=== PATIENT | female | born 1970 | race Caucasian/White ===

== ENCOUNTER 2022-03-24 12:31 | Emergency (ER) | payer BC ==
[~2022-03-24] VITALS: Ht 157.4 cm; Wt 90.7 kg
[2022-03-24] MEDS ORDERED: DICYCLOMINE HCL10 MG PO (13:53)
[2022-03-24] MEDS ORDERED: CEPHALEXIN500 M1 PO (13:53)
== END 2022-03-24 14:12 | disposition home or self-care (01) ==
LOC: ED 12:31
DX: S93.402A Sprain of unspecified ligament of left ankle, initial encounter (principal); Z98.51 Tubal ligation status; X58.XXXA Exposure to other specified factors, initial encounter; Y93.89 Activity, other specified; Y92.89 Other specified places as the place of occurrence of the external cause; Y99.8 Other external cause status

== ENCOUNTER 2024-02-11 20:27 | Emergency (ER) | payer BC ==
[~2024-02-11] VITALS: Ht 167.6 cm; Wt 86.2 kg
[~2024-02-11 20:27] MED LIST: CEPHALEXIN500 M1 PO; DICYCLOMINE HCL10 MG PO
[2024-02-11 20:53] LABS: BASO # 0.1 10*3/uL (0.0-0.1); BASO % 0.9 % (0.0-1.0); EOS # 0.1 10*3/uL (0.0-0.4); EOS % 1.8 % (1.0-4.0); HEMATOCRIT 43.7 % (37.0-47.0); LYMPH # 2.8 10*3/uL (1.3-4.4); MEAN CELL VOLUME 83.6 fl (81.0-99.0); MEAN CORPUSCULAR HGB 26.4 pg (27.0-31.0); MEAN CORPUSCULAR HGB CONC 31.6 g/dl (33.0-37.0); MEAN PLATELET VOLUME 9.1 fl (9.6-12.3); MONO # 0.7 10*3/uL (0.1-1.0); PLATELET COUNT AUTOMATED 347 10*3/uL (130-400); RED BLOOD COUNT 5.23 10*6/uL (4.10-5.10); RED CELL DISTRI WIDTH 13.7 % (0-14.5); WHITE BLOOD COUNT 7.6 10*3/uL (4.8-10.8)
[2024-02-11] MEDS ORDERED: IOHEXOL 300 MG/ML 100 ML VIAL IV ONE (21:00)
[2024-02-11 21:12] LABS: BUN 17 mg/dl (9-23); CHLORIDE 102 mmol/L (98-107); POTASSIUM 3.9 mmol/L (3.4-5.1)
[2024-02-12] MEDS ORDERED: CLINDAMYCIN HC300 MG PO (01:31)
[2024-02-12] MEDS ORDERED: CLINDAMYCIN HCL 300 MG CAPSULE PO ONE (01:40)
== END 2024-02-12 01:45 | disposition home or self-care (01) ==
LOC: ED 20:27
PROVIDERS: Internal Medicine
DX: K11.20 Sialoadenitis, unspecified (principal); Z98.51 Tubal ligation status